=== PATIENT | female | born 1965 | race Asian ===

== ENCOUNTER 2019-12-30 09:46 | Emergency (ER) | payer MEDICAID, OTHER ==
[~2019-12-30] VITALS: Ht 157.5 cm; Wt 50.0 kg
[2019-12-30 09:52] VITALS: BP 128/84
[2019-12-30] MEDS ORDERED: VITA-328 PO (10:03)
[2019-12-30] MEDS ORDERED: MULT-1203 PO (10:03)
[2019-12-30] MEDS ORDERED: LOSA25TA71 PO (10:03)
[2019-12-30] MEDS ORDERED: LIDOCAINE 5% TRANSDERMAL PATCH TD ONE (11:30)
== END 2019-12-30 11:39 | disposition home or self-care (01) ==
LOC: EMS 09:49
DX: M79.602 Pain in left arm (principal); M79.601 Pain in right arm; R20.2 Paresthesia of skin; R20.0 Anesthesia of skin; I10 Essential (primary) hypertension; Z79.899 Other long term (current) drug therapy
CPT/HCPCS: 93005

== ENCOUNTER 2021-02-27 14:16 | Emergency (ER) | payer OTHER ==
[~2021-02-27] VITALS: Ht 160 cm; Wt 59.1 kg
[~2021-02-27 14:16] MED LIST: LOSA25TA21 PO; MULT-1203 PO; VITA-328 PO
[2021-02-27 15:30] VITALS: BP 130/78
[2021-02-27] MEDS ORDERED: BACITRACIN 0.9 GM PACKET OINTMENT TP ONE (15:45)
[2021-02-27] MEDS ORDERED: IBUPROFEN 800 MG TABLET PO ONE (15:45)
== END 2021-02-27 16:40 | disposition home or self-care (01) ==
LOC: EMS 14:21
DX: S90.212A Contusion of left great toe with damage to nail, initial encounter (principal); I10 Essential (primary) hypertension; L60.0 Ingrowing nail; W22.8XXA Striking against or struck by other objects, initial encounter; Y93.89 Activity, other specified; Y92.89 Other specified places as the place of occurrence of the external cause; Y99.8 Other external cause status
CPT/HCPCS: 99281; 99283

== ENCOUNTER 2025-03-14 14:23 | Emergency (ER) | payer OTHER ==
[~2025-03-14] VITALS: Ht 160 cm; Wt 54.5 kg
[~2025-03-14 14:23] MED LIST changes: +LOSA-381 PO; -LOSA25TA21 PO
[2025-03-14 14:33] VITALS: BP 109/53; PULSE 74; RESP 20; TEMP 97.9; O2SAT 97
[2025-03-14 15:17] LABS: COVID AG,FIA SOURCE NASAL SWAB
[2025-03-14 15:40] LABS: SARS-COV2 (COVID) ANTIGEN,FIA Negative (Negative)
[2025-03-14 15:43] LABS: INFLUENZA TYPE A NEGATIVE FOR TYPE A (NEGATIVE); INFLUENZA TYPE B NEGATIVE FOR TYPE B (NEGATIVE)
[2025-03-14] MEDS ORDERED: CHOL10002 PO (17:34)
[2025-03-14] MEDS ORDERED: LENA25CA PO (17:34)
[2025-03-14] MEDS ORDERED: LOSA-382 PO (17:34)
[2025-03-14] MEDS ORDERED: DIPH-1237 PO (17:34)
[2025-03-14] MEDS ORDERED: LIDO700A30 TP (17:34)
[2025-03-14] MEDS ORDERED: TRI2515C TP (17:34)
[2025-03-14] MEDS ORDERED: DEXA4TAB PO (17:34)
[2025-03-14] MEDS: BENZONATATE 100 MG CAPSULE PO ONE (17:53)
[2025-03-14] MEDS: GuaiFENesin SR 600 MG ER TABLET PO ONE (17:53)
[2025-03-14] MEDS ORDERED: BENZ-227 PO (18:01)
[2025-03-14] MEDS ORDERED: GUAIF600 PO (18:01)
== END 2025-03-14 17:53 | disposition home or self-care (01) ==
LOC: EMS 14:23
DX: J06.9 Acute upper respiratory infection, unspecified (principal); I10 Essential (primary) hypertension; Z79.899 Other long term (current) drug therapy; Z20.822 Contact with and (suspected) exposure to COVID-19
CPT/HCPCS: 71046; 87804; 99284